=== PATIENT | female | born 1940 | race Caucasian/White ===

== ENCOUNTER 2017-06-20 12:32 | Emergency (ER) | payer MEDICARE, MEDICAID ==
[~2017-06-20] VITALS: Ht 157.5 cm; Wt 76.0 kg
[~2017-06-20 12:32] MED LIST: ATORVASTATIN PO; BENA40TA3 PO; ECOTRIN PO; HUMULIN; NOVOLIN; PRILOSEC PO; SEE MED SHEET
[2017-06-20] MEDS ORDERED: ONDANSETRON HCL 4MG/2ML VIAL IV STA (14:26)
[2017-06-20] MEDS ORDERED: FAMOTIDINE 20MG/2ML VIAL IV STA (14:26)
[2017-06-20] MEDS ORDERED: SODIUM CHLORIDE 0.9% 1,000 ML IV ONE (14:26)
[2017-06-20 14:49] LABS: BASOPHILS % 0.7 % (0.0-2.0); EOSINOPHILS % 1.2 % (0.0-5.0); HEMATOCRIT. 39.3 % (36.0-48.0); HEMOGLOBIN. 13.1 g/dL (12.0-16.0); LYMPHOCYTES % 36.1 % (20.0-50.0); MEAN CORPUSCULAR VOLUME 90.2 fL (81.0-99.0); MEAN PLATELET VOLUME 8.3 fl (7.4-10.4); MONOCYTES % 5.6 % (2.0-8.0); NEUTROPHILS % 56.4 % (40.0-76.0); PLATELET 147 x1000/uL (130-400); RED BLOOD CELL COUNT 4.36 mill/uL (4.2-5.4); RED CELL DISTRIBUTION WIDTH 13.6 % (11.6-14.6)
[2017-06-20 15:05] LABS: CARBON DIOXIDE 29 mEq/L (21-32); CHLORIDE 101 mEq/L (98-107); TROPONIN I < 0.02 ng/mL (0.00-0.04)
[2017-06-20 15:10] LABS: CLARITY URINE CLEAR (CLEAR); COLOR URINE YELLOW (YELLOW); GLUCOSE URINE 1+ (NEGATIVE); KETONES URINE NEGATIVE (NEGATIVE); LEUKOCYTE ESTERASE URINE NEGATIVE (NEGATIVE); NITRITE URINE NEGATIVE (NEGATIVE); OCCULT BLOOD URINE NEGATIVE (NEGATIVE); PH URINE 8.5 (4.5-8.0); PROTEIN URINE NEGATIVE (NEGATIVE); SPECIFIC GRAVITY URINE 1.009 (1.005-1.030); UROBILINOGEN URINE 0.2 E.U./dL (0.2-1.0)
[2017-06-20 15:18] LABS: PROTHROMBIN TIME 10.3 sec (9.4-11.6)
[2017-06-20 15:50] VITALS: BP 157/86
== END 2017-06-20 16:51 | disposition home or self-care (01) ==
LOC: ER 12:58
DX: T50.995A Adverse effect of other drugs, medicaments and biological substances, initial encounter (principal); E11.65 Type 2 diabetes mellitus with hyperglycemia; I25.10 Atherosclerotic heart disease of native coronary artery without angina pectoris; I10 Essential (primary) hypertension; E78.00 Pure hypercholesterolemia, unspecified; Z88.5 Allergy status to narcotic agent; Z79.4 Long term (current) use of insulin; Y92.89 Other specified places as the place of occurrence of the external cause
CPT/HCPCS: 36415; 71010; 80053; 81001; 83605; 83690; 84484; 85025; 85610; 93005; 96374; 96375; 99285; J2405; J3490; J7030; J7040

== ENCOUNTER 2019-08-28 10:13 | Inpatient (IN) | payer MEDICAID, MEDICARE ==
[~2019-08-28] VITALS: Ht 152.4 cm; Wt 80.3 kg
[~2019-08-28 10:13] MED LIST changes: -BENA40TA3 PO; +BENA40TA9 PO; -HUMULIN; -NOVOLIN; -SEE MED SHEET
[2019-08-28 13:31] LABS: CLARITY URINE CLOUDY (CLEAR); COLOR URINE YELLOW (YELLOW); KETONES URINE NEGATIVE (NEGATIVE); LEUKOCYTE ESTERASE URINE 1+ (NEGATIVE); NITRITE URINE NEGATIVE (NEGATIVE); OCCULT BLOOD URINE TRACE (NEGATIVE); PROTEIN URINE NEGATIVE (NEGATIVE); SPECIFIC GRAVITY URINE 1.019 (1.005-1.030); UROBILINOGEN URINE 0.2 E.U./dL (0.2-1.0)
[2019-08-28 14:03] LABS: BASOPHILS % 0.6 % (0.0-2.0); HEMOGLOBIN. 13.7 g/dL (12.0-16.0); MEAN CORPUSCULAR HEMOGLOBIN 30.7 pg (28.0-32.0); MEAN PLATELET VOLUME 8.1 fl (7.4-10.4); MONOCYTES % 3.2 % (2.0-8.0); NEUTROPHILS % 77.2 % (40.0-76.0); PLATELET 157 x1000/uL (130-400); RED BLOOD CELL COUNT 4.46 mill/uL (4.2-5.4); RED CELL DISTRIBUTION WIDTH 13.8 % (11.6-14.6)
[2019-08-28 14:07] LABS: CHLORIDE 101 mEq/L (98-107)
[2019-08-28 14:12] LABS: PROTHROMBIN TIME 9.9 sec (9.6-11.0)
[2019-08-28] MEDS ORDERED: SODIUM CHLORIDE 0.9% 1,000 ML IV ONE (15:39)
[2019-08-28] MEDS ORDERED: CEFTRIAXONE 1 G PREMIX 50 ML IV ONE (15:45)
[2019-08-28] MEDS ORDERED: AZITHROMYCIN 500 MG in DEXT 5% WATER 250 ML IV SCH (15:45)
[2019-08-28] MEDS ORDERED: ONDANSETRON HCL 4MG/2ML INJ IV ONE (15:45)
[2019-08-28] MEDS ORDERED: ONDANSETRON HCL 4MG/2ML INJ IV PRN (23:45)
[2019-08-29 04:00] VITALS: BP 140/49
[2019-08-29 04:30] VITALS: BP 155/72
[2019-08-29] MEDS ORDERED: HYDR-2510 PO (04:38)
[2019-08-29 08:00] VITALS: BP_SYST 116; BP_SYST 136; BP_DIAS 50; BP_DIAS 67
[2019-08-29] MEDS ORDERED: ENOXAPARIN 40MG/0.4ML SYR SUBCUT ONE (08:00)
[2019-08-29] MEDS ORDERED: PANTOPRAZOLE SODIUM 40 MG/VIAL IV SCH (09:00)
[2019-08-29] MEDS: HYDROCHLOROTHIAZIDE 25MG TABLET PO SCH (09:09)
[2019-08-29] MEDS: BENAZEPRIL 10MG TABLET PO SCH (09:10)
[2019-08-29] MEDS: OMEPRAZOLE 20MG CAPSULE EXTENDED RELEASE PO SCH ×3 (09:10→21:20)
[2019-08-29 09:21] LABS: HEMATOCRIT 34.7 % (36.0-48.0); HEMOGLOBIN 11.7 g/dL (12.0-16.0); MEAN CORPUSCULAR HEMOGLOBIN 30.8 pg (28.0-32.0); MEAN CORPUSCULAR VOLUME 91.2 fL (81.0-99.0); PLATELET 136 x1000/uL (130-400); RED CELL DISTRIBUTION WIDTH 13.4 % (11.6-14.6)
[2019-08-29 09:27] LABS: CHLORIDE 103 mEq/L (98-107)
[2019-08-29] MEDS ORDERED: CEFTRIAXONE 2 G PREMIX 50 ML IV SCH (10:00)
[2019-08-29] MEDS: ENOXAPARIN 40MG/0.4ML SYR SUBCUT SCH (11:39)
[2019-08-29] MEDS: DEXT 5%/0.45% NACL KCL 10MEQ/L 1,000 ML IV SCH ×2 (11:39→17:25)
[2019-08-29 12:00] VITALS: BP 136/50
[2019-08-29 16:00] VITALS: BP 138/51
[2019-08-29] MEDS ORDERED: DEXTROSE 50% WATER 50ML SYRINGE IV PRN (18:15)
[2019-08-29 20:00] VITALS: BP 120/47
[2019-08-29] MEDS: ATORVASTATIN CALCIUM 40MG TABLET PO SCH ×2 (21:00→21:20)
[2019-08-29] MEDS ORDERED: INSULIN LISPRO 100 UNITS/ML SUBCUT NR (21:15)
[2019-08-29] MEDS: INSULIN LISPRO 100 UNITS/ML SUBCUT SCH (21:23)
[2019-08-29] MEDS: BLOOD SUGAR DIAGNOSTIC STRIP TEST SCH (21:24)
[2019-08-30] VITALS: BP 101/45
[2019-08-30] MEDS ORDERED: KETOROLAC 30MG/ML VIAL IV NR (02:15)
[2019-08-30] MEDS: DEXT 5%/0.45% NACL KCL 10MEQ/L 1,000 ML IV SCH ×2 (02:24→09:44)
[2019-08-30 04:00] VITALS: BP 109/45
[2019-08-30] MEDS: BLOOD SUGAR DIAGNOSTIC STRIP TEST SCH ×4 (06:50→21:16)
[2019-08-30] MEDS: OMEPRAZOLE 20MG CAPSULE EXTENDED RELEASE PO SCH ×2 (06:51→21:16)
[2019-08-30] MEDS: INSULIN LISPRO 100 UNITS/ML SUBCUT SCH ×4 (06:55→21:00)
[2019-08-30 08:00] VITALS: BP 126/47
[2019-08-30] MEDS: HYDROCHLOROTHIAZIDE 25MG TABLET PO SCH (09:43)
[2019-08-30] MEDS: BENAZEPRIL 10MG TABLET PO SCH (09:44)
[2019-08-30] MEDS: ENOXAPARIN 40MG/0.4ML SYR SUBCUT SCH (09:44)
[2019-08-30] MEDS: CEFTRIAXONE 2 G in DEXTROSE 5% WATER 50 ML IV SCH (10:14)
[2019-08-30 12:00] VITALS: BP 132/48
[2019-08-30 12:24] LABS: BASOPHILS % 0.6 % (0.0-2.0); EOSINOPHILS % 2.4 % (0.0-5.0); HEMATOCRIT. 30.5 % (36.0-48.0); LYMPHOCYTES % 48.3 % (20.0-50.0); MEAN CORPUSCULAR HEMOGLOBIN 31.4 pg (28.0-32.0); MEAN CORPUSCULAR VOLUME 95.9 fL (81.0-99.0); MEAN PLATELET VOLUME 8.5 fl (7.4-10.4); MONOCYTES % 6.8 % (2.0-8.0); NEUTROPHILS % 41.9 % (40.0-76.0); PLATELET 110 x1000/uL (130-400); RED BLOOD CELL COUNT 3.18 mill/uL (4.2-5.4); RED CELL DISTRIBUTION WIDTH 13.8 % (11.6-14.6)
[2019-08-30] MEDS ORDERED: ACETAMINOPHEN 325MG TABLET PO PRN (13:45)
[2019-08-30] MEDS ORDERED: ACETAMINOPHEN 650MG SUPP PR PRN (13:45)
[2019-08-30] MEDS: DOCUSATE SODIUM 100MG CAPSULE PO SCH ×2 (13:51→17:16)
[2019-08-30] MEDS ORDERED: IOHEXOL-300 100 ML BOTTLE ONE (15:41)
[2019-08-30 16:00] VITALS: BP 136/50
[2019-08-30] MEDS ORDERED: LORAZEPAM 2MG/ML CPJ IV PRN (16:15)
[2019-08-30] MEDS ORDERED: SODIUM CHLORIDE 0.45% 1,000 ML IV SCH (16:15)
[2019-08-30] MEDS ORDERED: DIPHENHYDRAMINE 50MG/ML VIAL IV PRN (16:15)
[2019-08-30] MEDS ORDERED: LACTULOSE 20G/30ML UDC PO PRN (16:15)
[2019-08-30] MEDS: METOCLOPRAMIDE HCL 10MG/2ML VIAL IV SCH (17:28)
[2019-08-30 18:00] LABS: CHLORIDE 100 mEq/L (98-107)
[2019-08-30] MEDS ORDERED: INSULIN GLARGINE UD 100 UNITS/ML SYR SUBCUT SCH (18:00)
[2019-08-30 20:00] VITALS: BP 108/60
[2019-08-30] MEDS: ATORVASTATIN CALCIUM 40MG TABLET PO SCH (21:16)
[2019-08-31] VITALS: BP 117/51
[2019-08-31 04:00] VITALS: BP 117/51
[2019-08-31] MEDS: OMEPRAZOLE 20MG CAPSULE EXTENDED RELEASE PO SCH (06:26)
[2019-08-31] MEDS: BLOOD SUGAR DIAGNOSTIC STRIP TEST SCH ×2 (06:26→12:07)
[2019-08-31] MEDS: METOCLOPRAMIDE HCL 10MG/2ML VIAL IV SCH ×3 (06:26→12:12)
[2019-08-31] MEDS: INSULIN LISPRO 100 UNITS/ML SUBCUT SCH ×2 (06:49→12:48)
[2019-08-31 07:56] LABS: CHLORIDE 103 mEq/L (98-107)
[2019-08-31 08:00] VITALS: BP 126/48
[2019-08-31 08:05] LABS: BASOPHILS % 0.5 % (0.0-2.0); HEMATOCRIT. 33.7 % (36.0-48.0); HEMOGLOBIN. 11.6 g/dL (12.0-16.0); MEAN CORPUSCULAR HEMOGLOBIN 31.1 pg (28.0-32.0); MEAN CORPUSCULAR VOLUME 90.5 fL (81.0-99.0); MEAN PLATELET VOLUME 8.3 fl (7.4-10.4); MONOCYTES % 8.8 % (2.0-8.0); NEUTROPHILS % 46.7 % (40.0-76.0); PLATELET 135 x1000/uL (130-400); RED BLOOD CELL COUNT 3.73 mill/uL (4.2-5.4); RED CELL DISTRIBUTION WIDTH 13.1 % (11.6-14.6)
[2019-08-31] MEDS: ENOXAPARIN 40MG/0.4ML SYR SUBCUT SCH (09:34)
[2019-08-31] MEDS: DOCUSATE SODIUM 100MG CAPSULE PO SCH (09:34)
[2019-08-31] MEDS: BENAZEPRIL 10MG TABLET PO SCH (09:35)
[2019-08-31] MEDS: HYDROCHLOROTHIAZIDE 25MG TABLET PO SCH (09:35)
[2019-08-31] MEDS ORDERED: INSULIN GLARGINE UD 100 UNITS/ML SYR SUBCUT SCH (10:00)
[2019-08-31] MEDS: CEFTRIAXONE 2 G in DEXTROSE 5% WATER 50 ML IV SCH (12:15)
[2019-08-31] MEDS ORDERED: METO5TAB86 MT (12:24)
[2019-08-31] MEDS ORDERED: LEVO500T2 MT (12:24)
[2019-08-31 15:07] VITALS: BP 126/48
== END 2019-08-31 15:30 | disposition home or self-care (01) | DRG 74 ==
LOC: ER 10:56 → ENRESERV 08-29 03:07 → 8WST 08-29 04:00
PROVIDERS: ADMIT Internal Medicine; ATTEND Internal Medicine
DX: E11.43 Type 2 diabetes mellitus with diabetic autonomic (poly)neuropathy (principal); N39.0 Urinary tract infection, site not specified; K29.70 Gastritis, unspecified, without bleeding; K31.84 Gastroparesis; I10 Essential (primary) hypertension; E86.0 Dehydration; J45.909 Unspecified asthma, uncomplicated; D64.9 Anemia, unspecified; E11.65 Type 2 diabetes mellitus with hyperglycemia; E78.5 Hyperlipidemia, unspecified; I25.10 Atherosclerotic heart disease of native coronary artery without angina pectoris; Z88.6 Allergy status to analgesic agent; Z79.899 Other long term (current) drug therapy; Z98.891 History of uterine scar from previous surgery
CPT/HCPCS: 36415; 71045; 74178; 80048; 80053; 80076; 81003; 82962; 83036; 85025; 85027; 87077; 87186; 93306; 97162; 99285; J0456; J0696; J1650; J1815; J1885; J2405; J2765; J7030; J7060; Q9967